=== PATIENT | male | born 1955 ===

== ENCOUNTER 2025-02-16 21:25 | Emergency (ER) | payer SELFPAY ==
[2025-02-16] VITALS (9 sets, daily range): BP systolic 112–167; BP diastolic 60–100; PULSE 73–98; RESP 10–21; TEMP 36.6; O2SAT 95–98; BMI 25.8
--- NOTE | 2025-02-16 22:16 | ED_ITS ---
HPI - Medical Clearance General Chief complaint: Medical Clearance Stated complaint: fit for snf Time Seen by Provider: 02/16/25 21:52 Source: patient and police Mode of arrival: EMS History of Present Illness HPI Narrative: 69-year-old male admits to drinking alcohol tonight anticipating watching fireworks, brought in by police for medical clearance. Denies any injuries. Has had recent diarrhea for the last couple of months, no black or red stools, awaiting further outpatient evaluation. He denies any pain currently to head, face, neck, upper mid lower back, abdomen pelvis flank, upper extremities, lower extremities. He has eczema rash to the left lower extremity, no fevers or chills. No cellulitis. He is not currently on any antibiotics. Denies any dizziness. Related Information Allergies Allergy/AdvReac Type Severity Reaction Status Date / Time peas Allergy Verified 02/16/25 21:37 Garbanzo beans Allergy Uncoded 02/16/25 21:37 [place] Allergy Uncoded 02/16/25 21:37 Patient History Alcohol type: beer Exam Narrative Exam Narrative: GENERAL: Well-developed patient, in mild distress. HEAD: Atraumatic. Normocephalic. EYES: Pupils equal round and reactive. Extraocular motions intact. No scleral icterus. No injection or drainage. ENT: Nose without bleeding, purulent drainage. Throat without erythema, tonsillar hypertrophy or exudate. Airway patent. NECK: Trachea midline. Non tender CARDIOVASCULAR: Regular rate and rhythm without murmurs, gallops, or rubs. RESPIRATORY: Clear to auscultation. Breath sounds equal bilaterally. No wheezes, rales, or rhonchi. GASTROINTESTINAL: Abdomen soft, non-tender, nondistended. EXTREMITIES: No edema or joint tenderness. BACK: Nontender without deformity or crepitance. No flank tenderness. NEURO: AOx3. Motor functions grossly nonfocal. SKIN: No rash or erythema of visible areas Initial Vital Signs Initial Vital Signs: Vital Signs Pulse Rate 98 H 02/16/25 21:27 Pulse Oximetry 98 02/16/25 21:27 MDM - Medical Clearance MDM Narrative Medical decision making narrative: 69-year-old male admits to recent drinking, brought in by police for medical clearance. Describes recent months diarrhea awaiting outpatient follow up with stool collection still to be done apparently. Also left lower extremity eczema without obvious cellulitis on examination. No obvious injury patterns. Unremarkable vitals. Does not seem to be in alcohol withdrawal. Medically clear for law enforcement. Discharge Plan Departure Patient Disposition: Home Clinical Impression: Medical clearance for incarceration Activity Restrictions/Additional Instructions: Admits to recent alcohol use, has had ongoing diarrhea for the last 2 months not significantly increasingly changed. Afebrile on triage, with unremarkable vitals. No obvious trauma. He denies pain to head, neck, spine, back, abdomen, chest, extremities. Small patch left lower extremity eczema, not obviously infected. Medically cleared for law enforcement disposition. Stand Alone Forms: Patient Portal/API
--- NOTE | 2025-02-16 22:25 | PC.NURSE ---
Pt has been medically cleared by Dr. Jacobs at 22:25. Pending warrant for legal ETOH lab draw r/t possible DUI charges.
== END 2025-02-16 23:26 | disposition home or self-care (01) ==
PROVIDERS: Emergency Provider Emergency Medicine
DX: Z02.89 Encounter for other administrative examinations (principal)
CPT/HCPCS: 99281